=== PATIENT | male | born 1985 | race Caucasian/White ===

== ENCOUNTER 2021-05-23 01:11 | Inpatient (IN) | payer MEDICAID ==
[~2021-05-23] VITALS: Ht 175.3 cm; Wt 84.8 kg
[2021-05-23] MEDS ORDERED: KETOROLAC 30MG/ML VIAL IV STA (01:59)
[2021-05-23] MEDS ORDERED: PIPERACILLIN/TAZOBACTAM 3.375GM/50ML PREMIX IV SCH (02:00)
[2021-05-23] MEDS ORDERED: SODIUM CHLORIDE 0.9% 1,000 ML IV ONE (02:00)
[2021-05-23] MEDS ORDERED: VANCOMYCIN 1 G PREMIX 200 ML IV SCH ×2 (02:00→13:00)
[2021-05-23] MEDS ORDERED: TETANUS, DIPHTHERIA, PERTUSSIS VAC/PF 0.5ML (>10YR OLD) IM ONE (02:00)
[2021-05-23 03:32] LABS: BASOPHILS % 0.8 % (0.0-2.0); EOSINOPHILS % 2.7 % (0.0-5.0); HEMATOCRIT. 44.3 % (42.0-52.0); LYMPHOCYTES % 21.7 % (20.0-50.0); MEAN CORPUSCULAR HEMOGLOBIN 31.6 pg (28.0-32.0); MEAN CORPUSCULAR VOLUME 93.7 fL (80.0-94.0); MEAN PLATELET VOLUME 9.4 fl (7.4-10.4); MONOCYTES % 7.8 % (2.0-8.0); PLATELET 261 x1000/uL (130-400); RED BLOOD CELL COUNT 4.73 mill/uL (4.7-6.1); RED CELL DISTRIBUTION WIDTH 12.9 % (11.6-14.6)
[2021-05-23 03:35] LABS: CHLORIDE 104 mEq/L (98-107)
[2021-05-23] MEDS ORDERED: HYDROCODONE/ACETAMINOPHEN 5/325MG TABLET PO PRN (09:45)
[2021-05-23] MEDS ORDERED: KETOROLAC 30MG/ML VIAL IV PRN (09:45)
[2021-05-23] MEDS ORDERED: ONDANSETRON HCL 4MG/2ML INJ IV PRN (09:45)
[2021-05-23] MEDS ORDERED: NALOXONE HCL 0.4MG/ML VIAL IV PRN (10:45)
[2021-05-23 11:00] VITALS: BP 105/68
[2021-05-23 12:00] VITALS: BP 105/68
[2021-05-23] MEDS ORDERED: PIPERACILLIN/TAZ 3.375G PREMIX 50 ML IV SCH (14:00)
[2021-05-23 16:00] VITALS: BP 103/64
[2021-05-23] MEDS ORDERED: PIPERACILLIN/TAZOBACTAM 3.375G in DEXT 5% WATER 50ML IV NR (17:00)
[2021-05-23] MEDS ORDERED: CLOTRIMAZOLE 1% CREAM 30GM TOP SCH (21:00)
[2021-05-23] MEDS ORDERED: PIPERACILLIN/TAZOBACTAM 3.375G in DEXT 5% WATER 50ML IV SCH (22:00)
== END 2021-05-23 20:00 | disposition left against medical advice (07) | DRG 385 ==
LOC: ER 01:11 → MICUSO 03:58 → 6EST 07:56 → MICUSO 07:56 → 6EST 10:51
PROVIDERS: ADMIT Internal Medicine; ATTEND Internal Medicine
DX: B35.3 Tinea pedis (principal); L03.115 Cellulitis of right lower limb; F17.210 Nicotine dependence, cigarettes, uncomplicated; Z53.29 Procedure and treatment not carried out because of patient's decision for other reasons; Z59.00 Homelessness unspecified; L03.116 Cellulitis of left lower limb; Z71.6 Tobacco abuse counseling
CPT/HCPCS: 36415; 71045; 73630; 80053; 85025; 90715; 93970; 97022; 97161; 99285; J1885; J2543; J3370; J7030; J7060